=== PATIENT | male | born 1960 ===

== ENCOUNTER 2018-02-10 09:05 | Emergency (ER) | payer MEDICAID ==
[2018-02-10 09:08] VITALS: TEMP 98.9; O2SAT 97
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
[2018-02-10 11:07] VITALS: BP 148/90; PULSE 90; RESP 18
== END 2018-02-10 11:02 | disposition home or self-care (01) ==
LOC: H.ER 09:05
DX: Z45.2 Encounter for adjustment and management of vascular access device (principal); Z85.038 Personal history of other malignant neoplasm of large intestine